=== PATIENT | male | born 1990 | race Caucasian/White ===

== ENCOUNTER 2021-08-03 21:23 | Emergency (ER) | payer SELFPAY ==
[~2021-08-03] VITALS: Ht 170.2 cm; Wt 79.0 kg
[2021-08-03] MEDS ORDERED: HYDROCODONE/ACETAMINOPHEN 5/325MG TABLET PO ONE (22:00)
[2021-08-03] MEDS ORDERED: PROPOFOL 200MG/20ML VIAL IV ONE (23:15)
[2021-08-03] MEDS ORDERED: ONDANSETRON HCL 4MG/2ML INJ IV ONE (23:15)
[2021-08-03] MEDS ORDERED: SODIUM CHLORIDE 0.9% 1,000 ML IV ONE (23:15)
[2021-08-04 02:17] VITALS: BP 124/80
== END 2021-08-04 02:48 | disposition home or self-care (01) ==
LOC: ER 21:23
DX: S43.015A Anterior dislocation of left humerus, initial encounter (principal); S01.511A Laceration without foreign body of lip, initial encounter; W01.0XXA Fall on same level from slipping, tripping and stumbling without subsequent striking against object, initial encounter; Y93.89 Activity, other specified; Y92.39 Other specified sports and athletic area as the place of occurrence of the external cause
CPT/HCPCS: 12011; 23650; 73030; 96361; 96374; 99152; 99285; J2405; J2704; J7030; 96375; 99284